=== PATIENT | female | born 1990 | race Caucasian/White ===

== ENCOUNTER 2023-09-15 16:17 | Emergency (ER) | payer BC, SELFPAY ==
[2023-09-15] MEDS ORDERED: Ipratropium/Albuterol 3 ML NEB ONE (17:24)
[2023-09-15] MEDS ORDERED: predniSONE 20 MG TAB ONE (17:28)
[2023-09-15 18:00] LABS: SARS-CoV-2 NAA Rapid Test Not Detected (NotDetected)
== END 2023-09-15 18:40 | disposition home or self-care (01) ==
LOC: CSHERS 16:17
DX: J45.901 Unspecified asthma with (acute) exacerbation (principal); J21.0 Acute bronchiolitis due to respiratory syncytial virus; Z20.822 Contact with and (suspected) exposure to COVID-19
CPT/HCPCS: 94640; J7512; J7620